=== PATIENT | female | born 1965 | race Caucasian/White ===

== ENCOUNTER 2018-10-19 18:29 | Inpatient (IN) ==
[2018-10-19] MEDS ORDERED: Naloxone 0.4 MG/ML INJ IVP PRN (21:40)
[2018-10-19] MEDS ORDERED: Ondansetron 4 MG/2 ML VIAL IVP PRN (21:40)
[2018-10-19] MEDS ORDERED: Loratadine/Pseudophed (12 HR) 1 EACH TABLET PO PRN (21:48)
[2018-10-19] MEDS ORDERED: Sennosides 8.6 MG TABLET PO PRN (21:48)
[2018-10-19] MEDS ORDERED: Morphine Sulfate 2 MG/ML SYRINGE IVP ONE (22:28)
[2018-10-19] MEDS ORDERED: Ipratropium/Albuterol Neb 3 ML IH PRN (22:32)
[2018-10-19] MEDS: 0.9 % Sodium Chloride 1,000 ML IVC SCH (22:52)
[2018-10-19] MEDS ORDERED: *HR* HYDROmorphone 2 MG/ML SYRINGE IVP STA (23:05)
[2018-10-19 23:52] LABS: BUN/Creatinine Ratio 17 (6-26); Blood Urea Nitrogen 13 mg/dL (6-20); Calcium 9.5 mg/dL (8.6-10.3); Carbon Dioxide 21 mEq/L (23-29); Chloride 106 mEq/L (98-107); Glucose 131 mg/dL (70-105); Osmolality,Calculated 286 (280-300); Potassium 3.5 mEq/L (3.5-5.1); Sodium 137 mEq/L (136-145); eGFR For African Americans > 60 (> 60); eGFR For Non-African Americans > 60 (> 60)
[2018-10-20 00:04] LABS: Basophils % 0.2 %; Hematocrit 41.9 % (35.3-44.9); Immature Granulocytes % 0.4 % (0-4); Lymphocytes # 1.1 K/mcL (0.6-4.6); Lymphocytes % 5.1 %; Mean Corpuscular HGB Conc 33.4 g/dL (31.6-35.5); Mean Corpuscular Hemoglobin 31.1 pg (28.0-33.3); Mean Corpuscular Volume 93.1 fL (83.0-100.0); Mean Platelet Volume 10.3 fL (9.4-12.4); Monocytes # 1.5 K/mcL (0.0-1.3); Monocytes % 6.9 %; Neutrophils # 19.1 K/mcL (1.6-8.9); Platelet Count 293 K/mcL (140-400); Red Cell Distribution Width 12.5 % (11.5-14.5); Segmented Neutrophils % 87.4 %; White Blood Count 21.8 K/mcL (4.3-11.1)
[2018-10-20] MEDS: Piperacillin/Tazobactam 3.375 GM in 0.9 % Sodium Chloride Mini Bag 100 ML IVPB SCH ×3 (00:18→15:46)
[2018-10-20] MEDS: *HR* HYDROmorphone 2 MG TABLET PO PRN ×2 (04:12→08:24)
[2018-10-20] MEDS ORDERED: Morphine Sulfate ER (12 HR) 30 MG TABLET.ER PO SCH (06:00)
[2018-10-20 06:35] LABS: Basophils % 0.3 %; Hematocrit 43.2 % (35.3-44.9); Lymphocytes % 4.2 %; Mean Platelet Volume 9.9 fL (9.4-12.4)
[2018-10-20 06:36] LABS: Basophils # 0.1 K/mcL (0.0-0.2); Hemoglobin 14.3 g/dL (11.5-15.4); Immature Granulocytes % 0.8 % (0-4); Lymphocytes # 1.1 K/mcL (0.6-4.6); Mean Corpuscular HGB Conc 33.1 g/dL (31.6-35.5); Mean Corpuscular Hemoglobin 30.8 pg (28.0-33.3); Mean Corpuscular Volume 93.1 fL (83.0-100.0); Monocytes # 1.2 K/mcL (0.0-1.3); Monocytes % 4.7 %; Platelet Count 282 K/mcL (140-400); Red Blood Count 4.64 M/mcL (3.82-4.97); Red Cell Distribution Width 12.5 % (11.5-14.5); White Blood Count 26.4 K/mcL (4.3-11.1)
[2018-10-20 06:39] LABS: INR 1.5; Prothrombin Time 17.3 Seconds (9.4-12.1)
[2018-10-20 06:40] LABS: Neutrophils # 23.8 K/mcL (1.6-8.9)
[2018-10-20 06:42] LABS: Activated Partial Thrombo Time 29.5 Seconds (26.0-36.0)
[2018-10-20 06:58] LABS: Troponin I < 0.03 ng/mL (< 0.04)
[2018-10-20 07:01] LABS: Alanine Aminotransferase 17 Units/L (7-52); Albumin 4.2 g/dL (3.5-5.7); Albumin/Globulin Ratio 1.7 (1.1-2.2); Alkaline Phosphatase 73 Units/L (34-104); Aspartate Amino Transferase 19 Units/L (13-39); BUN/Creatinine Ratio 14 (6-26); Bilirubin,Total 0.5 mg/dL (0.3-1.0); Blood Urea Nitrogen 12 mg/dL (6-20); Calcium 9.1 mg/dL (8.6-10.3); Carbon Dioxide 20 mEq/L (23-29); Chloride 106 mEq/L (98-107); Chol/HDL Ratio 2.8 (0-4.9); Cholesterol 139 mg/dL (< 200); Globulin 2.5 g/dL (2.4-3.5); Glucose 102 mg/dL (70-105); HDL Cholesterol 49 mg/dL (40-59); LDL Cholesterol,Calculated 81 mg/dL (0-99); Magnesium 1.8 mg/dL (1.6-2.6); Osmolality,Calculated 286 (280-300); Potassium 3.5 mEq/L (3.5-5.1); Sodium 138 mEq/L (136-145); Total Protein 6.7 g/dL (6.4-8.9); Triglycerides 43 mg/dL (< 150); eGFR For African Americans > 60 (> 60); eGFR For Non-African Americans > 60 (> 60)
[2018-10-20 07:27] LABS: Platelet Estimate Normal (Normal)
[2018-10-20] MEDS: 0.9 % Sodium Chloride 1,000 ML IVC SCH (08:26)
[2018-10-20 08:32] LABS: Bilirubin,Urine Negative (Negative); Blood,Urine Large (Negative); Clarity,Urine Cloudy (Clear); Color,Urine Yellow (Yellow); Glucose,Urine (UA) Normal (Normal); Ketones,Urine Trace mg/dL (Negative); Leukocyte Esterase,Urine Trace (Negative); Nitrite,Urine Negative (Negative); PH,Urine 5.5 pH Units (5.0-8.0); Protein,Urine 30 mg/dL (Neg-Trace); Specific Gravity,Urine 1.028 (1.010-1.025); Urobilinogen,Urine Normal (Normal)
[2018-10-20 08:35] LABS: Bacteria,Urine None Seen per hpf (None-Few); Hyaline Casts,Urine None Seen per lpf (None-Few); RBC,Urine TNTC per hpf (0-3); Squamous Epithelial Cell,Urine Many per lpf (None-Few); WBC,Urine 15-30 per hpf (0-3)
[2018-10-20] MEDS ORDERED: Topiramate 25 MG TABLET PO SCH (09:00)
[2018-10-20] MEDS ORDERED: Fluticasone Propionate Nasal 50 MCG/SPRAY BOTTLE NS SCH (09:00)
[2018-10-20] MEDS ORDERED: Fluconazole 100 MG TABLET PO SCH (09:00)
[2018-10-20] MEDS ORDERED: (Pentosan Polysulfate Sodium [Elmiron] 100 MG) PO SCH (09:00)
[2018-10-20] MEDS ORDERED: [UNRECOGNIZED DRUG - OTHER] PO SCH (09:00)
[2018-10-20] MEDS ORDERED: NORGESTIMATE ETHINYL ESTRADIOL PO SCH (09:00)
[2018-10-20] MEDS ORDERED: GLUCOSAMINE SULFATE DIPOT CHLR PO SCH (09:00)
[2018-10-20] MEDS ORDERED: Diclofenac Sodium (DR) 50 MG TABLET.DR PO SCH (09:00)
[2018-10-20] MEDS ORDERED: [UNRECOGNIZED DRUG - REMARK] PO SCH (09:00)
[2018-10-20] MEDS ORDERED: BuPROPion XL (24 HR) 150 MG TABLET PO SCH (09:00)
[2018-10-20] MEDS ORDERED: Cholecalciferol (D-3) 1,000 UNIT (25MCG) TABLET PO SCH (09:00)
[2018-10-20] MEDS ORDERED: Acetaminophen IV 1,000 MG/100 ML INFUS..BTL IVPB ONE (09:39)
[2018-10-20] MEDS ORDERED: *HR* Methadone 10 MG TABLET PO ONE (09:39)
[2018-10-20] MEDS ORDERED: *HR* Succinylcholine 200 MG/10 ML VIAL IVP ONE (11:43)
[2018-10-20] MEDS ORDERED: Lidocaine -MPF 2% 2 ML VIAL ONE (11:43)
[2018-10-20] MEDS ORDERED: Ondansetron 4 MG/2 ML VIAL ONE (11:43)
[2018-10-20] MEDS ORDERED: Dexamethasone 4 MG/ML VIAL ONE (11:43)
[2018-10-20] MEDS ORDERED: *HR* Rocuronium Bromide 50 MG/5 ML VIAL ONE (11:43)
[2018-10-20] MEDS ORDERED: *HR* Propofol 200 MG/20 ML VIAL IVP ONE (11:44)
[2018-10-20] MEDS ORDERED: *HR* FentaNYL (PF) 100 MCG/2 ML VIAL ONE (11:46)
[2018-10-20] MEDS ORDERED: Isovue-300 50ML VIAL ONE (11:58)
[2018-10-20] MEDS ORDERED: Albuterol 2.5 MG/3 ML NEBULIZER IH ONE (12:14)
[2018-10-20] MEDS ORDERED: Ondansetron 4 MG/2 ML VIAL IVP ONE (12:14)
[2018-10-20] MEDS ORDERED: *HR* Midazolam HCl 2 MG/2 ML VIAL IVP PRN (12:14)
[2018-10-20] MEDS ORDERED: *HR* HYDROmorphone (PF) 1 MG/ML SYRINGE IVP PRN (12:14)
[2018-10-20] MEDS ORDERED: Ketorolac 30 MG/ML VIAL IVP ONE (12:14)
[2018-10-20] MEDS ORDERED: *HR* Promethazine 25 MG/ML VIAL IVP PRN (12:14)
[2018-10-20] MEDS ORDERED: *HR* OxyCODONE Immed Rel 5 MG TABLET PO PRN (12:14)
[2018-10-20] MEDS ORDERED: *HR* PHENYLEPHRINE 1,000 MCG/10 ML SYRINGE IVP ONE (12:48)
[2018-10-20] MEDS ORDERED: EPHEDrine 50 MG/ML VIAL ONE (12:53)
[2018-10-20] MEDS ORDERED: CefOXitin 1,000 MG VIAL ONE (13:31)
[2018-10-20] MEDS ORDERED: Ondansetron 4 MG/2 ML VIAL IVP PRN (14:36)
[2018-10-20] MEDS ORDERED: Loratadine/Pseudophed (12 HR) 1 EACH TABLET PO PRN (14:36)
[2018-10-20] MEDS ORDERED: *HR* OxyCODONE/APAP 10/325 TABLET PO PRN (14:36)
[2018-10-20] MEDS ORDERED: Naloxone 0.4 MG/ML INJ IVP PRN (14:36)
[2018-10-20] MEDS ORDERED: Sennosides 8.6 MG TABLET PO PRN (14:36)
[2018-10-20] MEDS ORDERED: *HR* Heparin 5,000 UNIT/ML VIAL SQ SCH (18:00)
[2018-10-20] MEDS: *HR* Heparin 5,000 UNIT/ML VIAL SQ SCH (18:07)
[2018-10-20] MEDS: Morphine Sulfate ER (12 HR) 30 MG TABLET.ER PO SCH (18:07)
[2018-10-20] MEDS: Budesonide/Formoterol 160/4.5 1 PUFF INH IH SCH (20:04)
[2018-10-20] MEDS: Diclofenac Sodium (DR) 50 MG TABLET.DR PO SCH (20:44)
[2018-10-20] MEDS: Topiramate 25 MG TABLET PO SCH (20:45)
[2018-10-20] MEDS: Fluticasone Propionate Nasal 50 MCG/SPRAY BOTTLE NS SCH (20:45)
[2018-10-21] MEDS: Piperacillin/Tazobactam 3.375 GM in 0.9 % Sodium Chloride Mini Bag 100 ML IVPB SCH ×4 (00:30→23:14)
[2018-10-21] MEDS: Morphine Sulfate ER (12 HR) 30 MG TABLET.ER PO SCH ×2 (06:08→17:50)
[2018-10-21] MEDS: *HR* Heparin 5,000 UNIT/ML VIAL SQ SCH ×2 (06:11→17:50)
[2018-10-21 07:00] LABS: Basophils % 0.1 %; Lymphocytes % 3.1 %; Segmented Neutrophils % 92.2 %
[2018-10-21 07:01] LABS: Hematocrit 36.9 % (35.3-44.9); Hemoglobin 12.1 g/dL (11.5-15.4); Immature Granulocytes % 0.8 % (0-4); Lymphocytes # 0.9 K/mcL (0.6-4.6); Mean Corpuscular HGB Conc 32.8 g/dL (31.6-35.5); Mean Corpuscular Hemoglobin 30.9 pg (28.0-33.3); Mean Corpuscular Volume 94.4 fL (83.0-100.0); Mean Platelet Volume 10.5 fL (9.4-12.4); Monocytes # 1.1 K/mcL (0.0-1.3); Monocytes % 3.8 %; Platelet Count 275 K/mcL (140-400); Red Blood Count 3.91 M/mcL (3.82-4.97); Red Cell Distribution Width 13.2 % (11.5-14.5); White Blood Count 27.9 K/mcL (4.3-11.1)
[2018-10-21 07:04] LABS: Neutrophils # 25.7 K/mcL (1.6-8.9)
[2018-10-21 07:18] LABS: BUN/Creatinine Ratio 19 (6-26); Blood Urea Nitrogen 19 mg/dL (6-20); Calcium 8.7 mg/dL (8.6-10.3); Carbon Dioxide 21 mEq/L (23-29); Chloride 105 mEq/L (98-107); Glucose 132 mg/dL (70-105); Osmolality,Calculated 288 (280-300); Potassium 3.5 mEq/L (3.5-5.1); Sodium 137 mEq/L (136-145); eGFR For African Americans > 60 (> 60); eGFR For Non-African Americans 60 (> 60)
[2018-10-21 07:21] LABS: Platelet Estimate Normal (Normal)
[2018-10-21] MEDS: Budesonide/Formoterol 160/4.5 1 PUFF INH IH SCH ×2 (07:37→21:48)
[2018-10-21] MEDS: 0.9 % Sodium Chloride 1,000 ML IVC SCH ×2 (08:40→18:09)
[2018-10-21] MEDS: Diclofenac Sodium (DR) 50 MG TABLET.DR PO SCH (08:41)
[2018-10-21] MEDS: Cholecalciferol (D-3) 1,000 UNIT (25MCG) TABLET PO SCH (08:42)
[2018-10-21] MEDS: Fluconazole 100 MG TABLET PO SCH (08:43)
[2018-10-21] MEDS: ARIPiprazole 10 MG TABLET PO SCH (08:44)
[2018-10-21] MEDS: Fluticasone Propionate Nasal 50 MCG/SPRAY BOTTLE NS SCH ×2 (08:44→20:07)
[2018-10-21] MEDS: Topiramate 25 MG TABLET PO SCH ×2 (08:44→20:05)
[2018-10-21] MEDS: CABERGOLINE 0.5 MG PO SCH (08:45)
[2018-10-21] MEDS ORDERED: BuPROPion XL (24 HR) 150 MG TABLET PO SCH (09:00)
[2018-10-21] MEDS ORDERED: 0.9 % Sodium Chloride 500 ML IVC PRN (12:36)
[2018-10-22] MEDS: Morphine Sulfate ER (12 HR) 30 MG TABLET.ER PO SCH ×2 (05:45→17:36)
[2018-10-22] MEDS: *HR* Heparin 5,000 UNIT/ML VIAL SQ SCH ×2 (05:46→17:37)
[2018-10-22 06:37] LABS: Basophils % 0.2 %; Eosinophils # 0.1 K/mcL (0.0-0.6); Eosinophils % 0.8 %; Hematocrit 35.6 % (35.3-44.9); Hemoglobin 11.3 g/dL (11.5-15.4); Immature Granulocytes % 0.5 % (0-4); Lymphocytes # 1.6 K/mcL (0.6-4.6); Lymphocytes % 9.3 %; Mean Corpuscular HGB Conc 31.7 g/dL (31.6-35.5); Mean Corpuscular Hemoglobin 30.3 pg (28.0-33.3); Mean Corpuscular Volume 95.4 fL (83.0-100.0); Monocytes # 0.9 K/mcL (0.0-1.3); Monocytes % 5.2 %; Neutrophils # 14.8 K/mcL (1.6-8.9); Platelet Count 268 K/mcL (140-400); Red Blood Count 3.73 M/mcL (3.82-4.97); Red Cell Distribution Width 13.2 % (11.5-14.5); White Blood Count 17.6 K/mcL (4.3-11.1)
[2018-10-22 06:59] LABS: BUN/Creatinine Ratio 21 (6-26); Blood Urea Nitrogen 19 mg/dL (6-20); Calcium 8.5 mg/dL (8.6-10.3); Carbon Dioxide 25 mEq/L (23-29); Chloride 110 mEq/L (98-107); Glucose 97 mg/dL (70-105); Osmolality,Calculated 296 (280-300); Potassium 3.7 mEq/L (3.5-5.1); Sodium 142 mEq/L (136-145); eGFR For African Americans > 60 (> 60); eGFR For Non-African Americans > 60 (> 60)
[2018-10-22] MEDS: Fluticasone Propionate Nasal 50 MCG/SPRAY BOTTLE NS SCH ×2 (07:22→20:05)
[2018-10-22] MEDS: Piperacillin/Tazobactam 3.375 GM in 0.9 % Sodium Chloride Mini Bag 100 ML IVPB SCH ×3 (07:23→23:40)
[2018-10-22] MEDS: ARIPiprazole 10 MG TABLET PO SCH (07:27)
[2018-10-22] MEDS: Fluconazole 100 MG TABLET PO SCH (07:29)
[2018-10-22] MEDS: CABERGOLINE 0.5 MG PO SCH (07:31)
[2018-10-22] MEDS: Cholecalciferol (D-3) 1,000 UNIT (25MCG) TABLET PO SCH (07:31)
[2018-10-22] MEDS: Topiramate 25 MG TABLET PO SCH ×2 (07:31→20:03)
[2018-10-22] MEDS: Budesonide/Formoterol 160/4.5 1 PUFF INH IH SCH ×2 (07:39→19:42)
[2018-10-23 05:09] LABS: Basophils # 0.1 K/mcL (0.0-0.2); Basophils % 0.4 %; Eosinophils # 0.5 K/mcL (0.0-0.6); Eosinophils % 4.2 %; Hematocrit 38.1 % (35.3-44.9); Immature Granulocytes % 0.5 % (0-4); Lymphocytes # 3.1 K/mcL (0.6-4.6); Mean Corpuscular HGB Conc 31.5 g/dL (31.6-35.5); Mean Corpuscular Hemoglobin 30.8 pg (28.0-33.3); Mean Corpuscular Volume 97.7 fL (83.0-100.0); Mean Platelet Volume 9.7 fL (9.4-12.4); Monocytes # 0.9 K/mcL (0.0-1.3); Monocytes % 7.9 %; Neutrophils # 6.8 K/mcL (1.6-8.9); Platelet Count 309 K/mcL (140-400); Red Cell Distribution Width 13.6 % (11.5-14.5); White Blood Count 11.3 K/mcL (4.3-11.1)
[2018-10-23 05:18] LABS: BUN/Creatinine Ratio 16 (6-26); Blood Urea Nitrogen 15 mg/dL (6-20); Calcium 8.5 mg/dL (8.6-10.3); Carbon Dioxide 22 mEq/L (23-29); Chloride 111 mEq/L (98-107); Glucose 93 mg/dL (70-105); Osmolality,Calculated 293 (280-300); Potassium 3.5 mEq/L (3.5-5.1); Sodium 141 mEq/L (136-145); eGFR For African Americans > 60 (> 60); eGFR For Non-African Americans > 60 (> 60)
[2018-10-23] MEDS: Morphine Sulfate ER (12 HR) 30 MG TABLET.ER PO SCH ×2 (05:42→17:41)
[2018-10-23] MEDS: *HR* Heparin 5,000 UNIT/ML VIAL SQ SCH ×2 (05:44→17:41)
[2018-10-23] MEDS: Budesonide/Formoterol 160/4.5 1 PUFF INH IH SCH ×2 (07:19→20:36)
[2018-10-23] MEDS: Fluticasone Propionate Nasal 50 MCG/SPRAY BOTTLE NS SCH (07:36)
[2018-10-23] MEDS: Piperacillin/Tazobactam 3.375 GM in 0.9 % Sodium Chloride Mini Bag 100 ML IVPB SCH ×2 (07:37→15:54)
[2018-10-23] MEDS: ARIPiprazole 10 MG TABLET PO SCH (07:40)
[2018-10-23] MEDS: Topiramate 25 MG TABLET PO SCH (07:41)
[2018-10-23] MEDS: Cholecalciferol (D-3) 1,000 UNIT (25MCG) TABLET PO SCH (07:42)
[2018-10-23 10:52] VITALS: BP 113/70
== END 2018-10-23 20:53 | disposition home or self-care (01) | DRG 853 ==
LOC: 3ANU → SUATTDRO 20:45
PROVIDERS: ADMIT Internal Medicine; ATTEND Internal Medicine